=== PATIENT | male | born 1985 | race African-American/Black ===

== ENCOUNTER 2021-11-20 11:24 | Emergency (ER) | payer MEDICARE, OTHER ==
[~2021-11-20] VITALS: Ht 157.5 cm; Wt 75.0 kg
[2021-11-20] MEDS ORDERED: ALBU18HF2 IH (13:00)
[2021-11-20 13:54] VITALS: BP 125/74
== END 2021-11-20 13:55 | disposition home or self-care (01) ==
LOC: ER 11:24
DX: U07.1 COVID-19 (principal); J45.909 Unspecified asthma, uncomplicated
CPT/HCPCS: 93005; 99284; C9803; U0003; U0005

== ENCOUNTER 2022-06-10 19:22 | Emergency (ER) | payer MEDICARE, MEDICAID ==
[~2022-06-10] VITALS: Ht 162.6 cm; Wt 84.0 kg
[~2022-06-10 19:22] MED LIST: ALBU18HF2 IH
[2022-06-10 22:08] LABS: CLARITY URINE CLEAR (CLEAR); COLOR URINE DARK YELLOW (YELLOW); KETONES URINE TRACE (NEGATIVE); LEUKOCYTE ESTERASE URINE NEGATIVE (NEGATIVE); NITRITE URINE NEGATIVE (NEGATIVE); OCCULT BLOOD URINE NEGATIVE (NEGATIVE); PH URINE 5.5 (4.5-8.0); PROTEIN URINE TRACE (NEGATIVE); SPECIFIC GRAVITY URINE 1.031 (1.005-1.030)
[2022-06-10] MEDS ORDERED: METH-653 MT (23:44)
[2022-06-10] MEDS ORDERED: IBUP-2029 MT (23:44)
[2022-06-11] VITALS: BP 138/80
== END 2022-06-11 00:06 | disposition home or self-care (01) ==
LOC: ER 19:22
DX: R07.9 Chest pain, unspecified (principal); J45.909 Unspecified asthma, uncomplicated
CPT/HCPCS: 71045; 72170; 81003; 93005; 99284

== ENCOUNTER 2022-06-25 21:38 | Emergency (ER) | payer MEDICARE, MEDICAID ==
[~2022-06-25] VITALS: Ht 167.6 cm; Wt 78.6 kg
[~2022-06-25 21:38] MED LIST changes: +IBUP-2029 MT; +METH-653 MT
[2022-06-25] MEDS ORDERED: IBUPROFEN 600MG TABLET PO STA (23:15)
[2022-06-25] MEDS ORDERED: TETANUS, DIPHTHERIA, PERTUSSIS VAC/PF 0.5ML (>10YR OLD) IM ONE (23:15)
[2022-06-25] MEDS ORDERED: LIDOCAINE HCL/PF 1% 10 MG/ML 5ML VIAL INFIL ONE (23:15)
[2022-06-25] MEDS ORDERED: BACITRACIN ZINC OINT UDPKT TOP ONE (23:15)
[2022-06-26] MEDS ORDERED: IBUP-2029 PO (02:27)
[2022-06-26] MEDS ORDERED: TETANUS, DIPHTHERIA, PERTUSSIS VAC/PF 0.5ML (>10YR OLD) IM ONE (02:45)
[2022-06-26] MEDS ORDERED: IBUPROFEN 600MG TABLET PO NR (02:45)
[2022-06-26] MEDS ORDERED: BACITRACIN ZINC OINT UDPKT TOP NR (02:45)
[2022-06-26 03:08] VITALS: BP 108/56
== END 2022-06-26 03:11 | disposition home or self-care (01) ==
LOC: ER 21:38
DX: S01.01XA Laceration without foreign body of scalp, initial encounter (principal); X58.XXXA Exposure to other specified factors, initial encounter; Y93.89 Activity, other specified; Y92.89 Other specified places as the place of occurrence of the external cause; Y99.8 Other external cause status; J45.909 Unspecified asthma, uncomplicated; F12.10 Cannabis abuse, uncomplicated
CPT/HCPCS: 90471; 90715; 99283

== ENCOUNTER 2024-01-22 14:31 | Emergency (ER) | payer MEDICARE, OTHER ==
[~2024-01-22] VITALS: Ht 170.2 cm; Wt 90.0 kg
[~2024-01-22 14:31] MED LIST changes: +IBUP-2029 PO
[2024-01-22 14:33] VITALS: BP 137/83; PULSE 98; RESP 18; TEMP 98.6; O2SAT 99
[2024-01-22 15:07] LABS: BASOPHILS % 0.5 % (0.0-2.0); EOSINOPHILS % 2.6 % (0.0-5.0); HEMATOCRIT. 40.9 % (42.0-52.0); HEMOGLOBIN. 13.8 g/dL (14.0-18.0); LYMPHOCYTES % 29.3 % (20.0-50.0); MEAN CORPUSCULAR HEMOGLOBIN 32.5 pg (28.0-32.0); MEAN CORPUSCULAR HGB CONC 33.7 g/dL (31.0-37.0); MEAN CORPUSCULAR VOLUME 96.2 fL (80.0-94.0); MEAN PLATELET VOLUME 6.9 fl (7.4-10.4); NEUTROPHILS % 58.6 % (40.0-76.0); PLATELET 339 x1000/uL (130-400); RED BLOOD CELL COUNT 4.25 mill/uL (4.7-6.1); RED CELL DISTRIBUTION WIDTH 12.9 % (11.6-14.6); WHITE BLOOD COUNT 7.1 x1000/uL (4.5-11.0)
[2024-01-22 15:23] LABS: ALANINE AMINOTRANSFERASE 19 IU/L (10-49); ALBUMIN 4.9 g/dL (3.2-4.8); ASPARTATE AMINOTRANSFERASE 19 IU/L (<34); BILIRUBIN TOTAL 1.2 mg/dL (0.1-1.0); CALCIUM 9.2 mg/dL (8.7-10.4); CARBON DIOXIDE 29 mEq/L (21-32); CHLORIDE 103 mEq/L (98-107); CREATININE 1.1 mg/dL (0.6-1.3); GLUCOSE 94 mg/dL (70-105); POTASSIUM 3.8 mEq/L (3.5-5.1); SODIUM 137 mEq/L (136-145); UREA NITROGEN BLOOD 13 mg/dL (9-23)
[2024-01-22 15:25] LABS: CLARITY URINE CLEAR (CLEAR); COLOR URINE YELLOW (YELLOW); GLUCOSE URINE NEGATIVE (NEGATIVE); KETONES URINE TRACE (NEGATIVE); LEUKOCYTE ESTERASE URINE NEGATIVE (NEGATIVE); NITRITE URINE NEGATIVE (NEGATIVE); OCCULT BLOOD URINE NEGATIVE (NEGATIVE); PH URINE 6.5 (4.5-8.0); PROTEIN URINE NEGATIVE (NEGATIVE); SPECIFIC GRAVITY URINE 1.037 (1.005-1.030)
[2024-01-22 16:21] LABS: TROPONIN I HIGH SENSITIVITY 4 ng/L (3.0-53)
[2024-01-22] MEDS ORDERED: ALBU6.7H15 INH (17:33)
[2024-01-22] MEDS ORDERED: NAPR-681 MT (17:33)
== END 2024-01-22 17:48 | disposition home or self-care (01) ==
LOC: ER 14:31
DX: R06.02 Shortness of breath (principal); F12.10 Cannabis abuse, uncomplicated; Z79.899 Other long term (current) drug therapy
CPT/HCPCS: 36415; 71045; 80053; 81003; 84484; 85025; 93005; 99285

== ENCOUNTER 2024-09-06 17:24 | Emergency (ER) | payer MEDICARE, MEDICAID ==
[~2024-09-06] VITALS: Ht 177.8 cm; Wt 95.0 kg
[~2024-09-06 17:24] MED LIST changes: +ALBU6.7H15 INH; +NAPR-681 MT
[2024-09-06 17:29] VITALS: O2SAT 98
[2024-09-06] MEDS ORDERED: ASPIRIN 325MG EC TABLET PO ONE (18:30)
[2024-09-06] MEDS ORDERED: GABAPENTIN 300MG CAPSULE PO SCH (18:30)
[2024-09-06] MEDS ORDERED: P50 MT (19:07)
[2024-09-06] MEDS ORDERED: IBUP-2029 PO (19:07)
[2024-09-06] MEDS ORDERED: AZIT250T12 MT (19:07)
[2024-09-06] MEDS ORDERED: ALBU90AE INH (19:07)
[2024-09-06] MEDS: PREDNISONE 20MG TABLET PO ONE (19:14)
[2024-09-06 19:29] LABS: BASOPHILS % 0.5 % (0.0-2.0); EOSINOPHILS % 3.2 % (0.0-5.0); HEMATOCRIT. 40.7 % (42.0-52.0); HEMOGLOBIN. 14.1 g/dL (14.0-18.0); LYMPHOCYTES % 26.5 % (20.0-50.0); MEAN CORPUSCULAR HEMOGLOBIN 33.6 pg (28.0-32.0); MEAN CORPUSCULAR HGB CONC 34.6 g/dL (31.0-37.0); MEAN PLATELET VOLUME 7.2 fl (7.4-10.4); MONOCYTES % 10.9 % (2.0-8.0); NEUTROPHILS % 58.9 % (40.0-76.0); PLATELET 364 x1000/uL (130-400); RED BLOOD CELL COUNT 4.19 mill/uL (4.7-6.1); RED CELL DISTRIBUTION WIDTH 12.5 % (11.6-14.6); WHITE BLOOD COUNT 7.9 x1000/uL (4.5-11.0)
[2024-09-06 19:38] LABS: CHLORIDE 108 mEq/L (98-107); SODIUM 142 mEq/L (136-145)
[2024-09-06 19:39] LABS: CALCIUM 10.2 mg/dL (8.7-10.4); CARBON DIOXIDE 26 mEq/L (21-32)
[2024-09-06 19:43] VITALS: BP 127/74; PULSE 78; RESP 16; TEMP 36.39180; O2SAT 99
[2024-09-06 19:44] LABS: CREATININE 1.3 mg/dL (0.6-1.3); GLUCOSE 82 mg/dL (70-105); UREA NITROGEN BLOOD 17 mg/dL (9-23)
[2024-09-06 19:46] LABS: ETHANOL BLOOD < 10 mg/dL (<10); TROPONIN I HIGH SENSITIVITY < 4 ng/L (3.0-53)
== END 2024-09-06 19:44 | disposition home or self-care (01) ==
LOC: ER 17:24
DX: J45.901 Unspecified asthma with (acute) exacerbation (principal); F12.10 Cannabis abuse, uncomplicated; Z79.899 Other long term (current) drug therapy
CPT/HCPCS: 80048; 80320; 83880; 85025; 84484; 36415; 71045; 93005; 99285; J7512; G0480

== ENCOUNTER 2025-07-12 13:34 | Emergency (ER) | payer MEDICARE, MEDICAID ==
[~2025-07-12] VITALS: Ht 170.2 cm; Wt 97.0 kg
[~2025-07-12 13:34] MED LIST changes: +ALBU90AE INH; +AZIT250T12 MT; +P50 MT
[2025-07-12 13:46] VITALS: O2SAT 97
[2025-07-12] MEDS ORDERED: CYCL10TA21 MT (15:18)
[2025-07-12] MEDS ORDERED: LIDO700A30 TP (15:18)
[2025-07-12] MEDS ORDERED: KETO10TA2 MT (15:18)
[2025-07-12 15:47] VITALS: TEMP 36.7; O2SAT 98
[2025-07-12 15:51] VITALS: BP 140/84; PULSE 88; RESP 16
[2025-07-12] MEDS: LIDOCAINE 5% PATCH TOP STA (15:51)
[2025-07-12] MEDS: KETOROLAC 30MG/ML VIAL IM ONE (15:51)
[2025-07-12] MEDS: CYCLOBENZAPRINE 10MG TABLET PO ONE (15:52)
== END 2025-07-12 15:54 | disposition home or self-care (01) ==
LOC: ER 13:34
DX: M54.50 Low back pain, unspecified (principal); M25.511 Pain in right shoulder; F12.10 Cannabis abuse, uncomplicated; J45.909 Unspecified asthma, uncomplicated; Z79.899 Other long term (current) drug therapy
CPT/HCPCS: 72100; 73030; 99284